=== PATIENT | female | born 1950 | race Caucasian/White ===

== ENCOUNTER → 2020-09-22 12:52 | Outpatient (BNVA) | payer MEDICARE, SELFPAY | PROVIDERS: Visit Provider Urology | DX: N20.0 Calculus of kidney (principal); N30.10 Interstitial cystitis (chronic) without hematuria | CPT/HCPCS: 81002; 99212 ==

== ENCOUNTER 2020-09-26 14:47 | Outpatient (REF) | payer MEDICARE, SELFPAY ==
[2020-10-02 13:02] LABS: URO-Calcium 24 Hr Urine 221 mg/day (<250.0); URO-Calcium Oxalat 24 Hr Urine 2.79 (<2.00); URO-Citric Acid 24 Hr Urine 608 mg/day (>320); URO-Creatinine 24 Hr Urine 858 mg/day (600-1800); URO-Magnesium 24 Hr Urine 84 mg/day (>60.0); URO-Oxalate 24 Hr Urine 18 mg/day (<45); URO-Phosphorus 24 Hr Urine 662 mg/day (<1100); URO-Potassium 24 Hr Urine 39 mEq/day (19-135); URO-Sodium 24 Hr Urine 79 mEq/day (<200); URO-Sodium Urate 24 Hr Urine 0.54 (<2.00); URO-Sulfate 24 Hr Urine 14 mmol/day (<30); URO-Total Volume 0.83 L/day (>2.00); URO-Uric Acid 24 Hr Urine 0.86 (<2.00); URO-Uric Acid 24 Hr Urine 89 mg/day (<700); URO-pH 24 Hr Urine 5.6 (5.5-7.0)
== END 2020-09-26 14:48 | disposition home or self-care (01) ==
LOC: HO.LNP 14:47
PROVIDERS: Visit Provider Urology
DX: N20.0 Calculus of kidney (principal)
CPT/HCPCS: 82340; 82507; 82570; 83735; 83945; 83986; 84105; 84133; 84300; 84392; 84560

== ENCOUNTER → 2020-10-27 14:15 | Outpatient (BNVA) | payer MEDICARE, SELFPAY | PROVIDERS: Visit Provider Urology | DX: Z13.89 Encounter for screening for other disorder (principal) | CPT/HCPCS: Q3014 ==

== ENCOUNTER 2021-04-26 14:14 | Outpatient (REF) | payer MEDICARE, SELFPAY ==
--- NOTE | ~2021-04-26 | US_ITS ---
EXAMINATION: US RETROPERITONEAL LIMITED (RENAL ONLY) CLINICAL INFORMATION: Calculus of kidney. COMPARISON: Renals only ultrasounds dated 02/17/2019 and 08/20/2018. TECHNIQUE: Real-time imaging of the kidneys. FINDINGS: RIGHT KIDNEY: 9.4 x 4.2 x 5.0 cm (SAG x AP x TRV). The kidney is normal in size, contour, and echogenicity. Renal cortical thickness is normal. No focal parenchymal lesions or hydronephrosis. There are a few echogenic stones in the lower pole measuring 0.4 x 0.2 x 0.3 cm and 0.5 x 0.3 cm. There is no caliectasis. In addition, there are multiple punctate echogenic calcifications. LEFT KIDNEY: 11.2 x 5.4 x 5.9 cm (SAG x AP x TRV). The kidney is normal in size, contour, and echogenicity. Renal cortical thickness is normal. No focal parenchymal lesions or hydronephrosis. There are echogenic stones in the midpole measuring 0.3 x 0.2 cm and lower pole measuring 0.2 x 0.1 cm. There are several multiple echogenic foci. There is mild pelvic fullness versus pelvic cysts. US/US renal BI IMPRESSION: Multiple bilateral echogenic renal calculi without caliectasis and hydronephrosis. In addition, there are multiple echogenic calcified foci in both kidneys. There is no hydronephrosis. However, there is mild pelvic fullness or peripelvic cyst left kidney.
== END 2021-04-26 14:15 | disposition home or self-care (01) ==
LOC: HO.US 14:14
PROVIDERS: Absent Provider Internal Medicine; PCP Internal Medicine; Visit Provider Urology
DX: N20.0 Calculus of kidney (principal)
CPT/HCPCS: 76775

== ENCOUNTER → 2021-05-05 08:46 | Outpatient (BNVA) | payer MEDICARE, SELFPAY | PROVIDERS: PCP Internal Medicine | DX: Z13.89 Encounter for screening for other disorder (principal) | CPT/HCPCS: Q3014 ==

== ENCOUNTER 2021-10-09 09:55 | Outpatient (REF) | payer MEDICARE, SELFPAY ==
--- NOTE | ~2021-10-09 | US_ITS ---
EXAMINATION: US RETROPERITONEAL LIMITED (RENAL ONLY) CLINICAL INFORMATION: Calculus of kidney. COMPARISON: US retroperitoneal limited (renal only) 04/26/2021 and 02/17/2019. TECHNIQUE: Real-time imaging of the kidneys. FINDINGS: RIGHT KIDNEY: 9.9 x 6.1 x 5.3 cm (SAG x AP x TRV). The kidney is normal in size, contour, and echogenicity. Renal cortical thickness is normal. No hydronephrosis. There are multiple peripelvic cysts, the largest measuring 2.2 x 1.3 x 1.3 cm. There are several echogenic nonobstructive stones. 1. Lower pole stone measures 0.3 x 0.4 x 0.5 cm. 2. Lower pole stone measures 0.3 x 0.5 x 0.6 cm. 3. Mid pole stone measuring 0.3 x 0.4 x 0.3 cm. 4. Lower pole stone measures 0.5 x 0.3 x 0.3 cm. LEFT KIDNEY: 12.0 x 4.9 x 5.4 cm (SAG x AP x TRV). The kidney is normal in size, contour, and echogenicity. Renal cortical thickness is normal. No hydronephrosis. There are multiple peripelvic cysts, the largest measures 2 x 3 x 3 cm. There are several echogenic stones in the mid pole measuring 0.6 x 0.4 x 0.3 cm. There are multiple echogenic calcifications seen throughout both kidneys, right greater than left. US/US renal BI IMPRESSION: Multiple bilateral peripelvic cysts. There are several echogenic stones in the right kidney and a solitary echogenic stone in the mid pole left kidney without caliectasis or hydronephrosis. They are stable to previous ultrasound abdomen exam 04/26/2021.
== END 2021-10-09 09:56 | disposition home or self-care (01) ==
LOC: HO.US 09:55
PROVIDERS: Visit Provider Urology
DX: N20.0 Calculus of kidney (principal)
CPT/HCPCS: 76775

== ENCOUNTER 2021-11-03 10:48 | Outpatient (REF) | payer MEDICARE, SELFPAY | END 2021-11-03 10:49 | disposition home or self-care (01) | LOC: HO.LAB 10:48 | DX: N30.10 Interstitial cystitis (chronic) without hematuria (principal); N20.0 Calculus of kidney; N39.0 Urinary tract infection, site not specified | CPT/HCPCS: 99212 ==

== ENCOUNTER 2022-05-02 13:15 | Outpatient (REF) | payer MEDICARE, SELFPAY ==
--- NOTE | ~2022-05-02 | US_ITS ---
EXAMINATION: US RETROPERITONEAL LIMITED (RENAL ONLY) CLINICAL INFORMATION: Calculus of kidney. COMPARISON: Ultrasound renal 10/09/2021 TECHNIQUE: Real-time imaging of the kidneys. FINDINGS: RIGHT KIDNEY: 9.3 x 3.6 x 5.5 cm (SAG x AP x TRV). The kidney is normal in size, contour, and echogenicity. Renal cortical thickness is normal. No renal hydronephrosis. Benign-appearing peripelvic renal cysts measuring up to 2.3 cm, no follow-up imaging recommended. Multiple nonobstructing renal stones which appears slightly decreased in size from prior measuring up to 3 mm in the lower pole, previously 5 mm. LEFT KIDNEY: 10.9 x 5.7 x 6.3 cm (SAG x AP x TRV). The kidney is normal in size, contour, and echogenicity. Renal cortical thickness is normal. No renal hydronephrosis. Benign-appearing peripelvic renal cysts measuring up to 3.2 cm, no imaging follow-up recommended. 3 mm nonobstructing midpole renal stone decreased from prior previously 6 mm. A 5 mm left upper pole renal stone was not and a 2 mm lower pole renal stone were not previously measured possibly new. US/US renal BI IMPRESSION: A 5 mm left upper pole renal stone and a 2 mm lower pole renal stone were not previously measured may be new from prior. Few other nonobstructing bilateral renal stones are slightly decreased in size measuring up to 3 mm bilaterally.
== END 2022-05-02 13:16 | disposition home or self-care (01) ==
LOC: HO.US 13:15
PROVIDERS: PCP Internal Medicine
DX: N20.0 Calculus of kidney (principal)
CPT/HCPCS: 76775

== ENCOUNTER → 2022-07-03 10:36 | Outpatient (BNVA) | payer MEDICARE, SELFPAY | PROVIDERS: PCP Internal Medicine; Visit Provider Nurse Practitioner Family | DX: N30.10 Interstitial cystitis (chronic) without hematuria (principal); N20.0 Calculus of kidney | CPT/HCPCS: 99212 ==

== ENCOUNTER 2023-01-10 10:21 | Outpatient (AMB) | payer MEDICARE, SELFPAY ==
--- NOTE | 2023-01-10 03:20 | A.OFFVIS_ITS ---
Intake Intake Visit Reasons: 6m follow up US (?) Intake Note: Patient presents today for a 6mo follow-up with US Results: Meds- Vitamin B6 & Estradiol Allergies to Antibiotic- No Known Allergies Blood Thinner- None PVR- 0ml Hub Borer Required: No Accompanied by: Self / Same As Patient Allergies No Known Allergies Allergy (Verified 01/10/23 10:26) HPI HPI Comments History of Present Illness Details Anjelica is a 72-year-old female who presents today to the office for a 6- month follow up. 01/10/2023? The patient was last seen by LISBET Mabry on 07/03/2022 for follow up on nephrolithiasis and interstitial cystitis and advised to follow up in 6 months. She had seen followed Dr. Oropeza for many years. The patient is prescribed vitamin B6 50 mg. She has seen snow shoveler in the past for excess of amount of calcium in the urine. She states that she is consuming adequate amount of fluids. Recent urinary tract infections treated with Bactrim DS 14 day course. She reports occasional bladder flare ups. She states that many foods aggravate her interstitial symptoms. She tried to avoid spices. She states that she has passed 2-3 stones in the urine a couple of months ago. she states her endocrinologis sent her for blood work and She is scheduled for bone density scan in 2 weeks. She has had renal US done on 05/02/2022. I discussed the recent CAT of the abdomen/pelvis without IV contrast from 12/11/2022 which was done at [facility]. I have reviewed the CAT scan which revealed multiple stones bilaterally approximately 8 kidney stones in the right and 10 kidney stones in the left kidney. They are small measuring up to 4.5 mm. Large parapelvic cyst in the left kidney. 01/10/23--Evaluation today UA---leukocytes: negative; blood: 10 Raheem; bladder scan PVR: 0. Plan: Patient had blood work at endocrionology office will have lab fax the results. 24-hour urine collection was ordered. Continue vitamin B6 50 mg daily. Tele-health video visit in 2-3 months. [facility] Medical History Bilateral nephrolithiasis Bladder pain H/O simple renal cyst Hypercalciuria Hyperthyroidism Interstitial cystitis Microscopic hematuria Nutcracker phenomenon of renal vein UTI (urinary tract infection) Surgical History History of cystoscopy History of hernia repair History of hysterectomy Review of Systems Const All systems reviewed & are unremarkable except as noted in HPI and below Reports no additional complaints Eyes Reports no additional complaints ENT Reports no additional complaints Card Reports no additional complaints Resp Reports no additional complaints Reports as per HPI Musc Reports no additional complaints Neuro Reports no additional complaints Psych Reports as per HPI Endo Details: Patient reports following with snow shoveler for hypothyrodism Jae/Lymph Reports no additional complaints Aller/Immun Reports no additional complaints Physical Exam Const General: cooperative, healthy appearing and no acute distress Orientation/consciousness: patient oriented x3 HEENT Head: Yes normal to inspection, Yes normocephalic and Yes atraumatic Eyes Conjunctivae: conjunctivae normal Neck Neck: Yes normal visual inspection and Yes trachea midline Chest Chest palpation & inspection: normal inspection of the chest Resp Effort & Inspection: normal respiratory effort Cardio Rate: regular rate GI Inspection: Yes normal to inspection Neuro General: patient oriented x3 Psych Appearance: grossly normal Office Procedures Post Void Residual Post Residual Void Post Void Residual (PVR): 0 [id number] Void Residual by ultrasound Results AMB Urinalysis, Automated UA Leukoctes 0 Luiza/uL Last Edit by LORIE Wise on 01/10/23 10:38 UA Nitrite Negative Last Edit by LORIE Wise on 01/10/23 10:38 UA Urobilinogen 0.2 mg/dL Last Edit by LORIE Wise on 01/10/23 10:3 8 UA Protein 0 mg/dL Last Edit by LORIE Wise on 01/10/23 10:38 UA pH 6.5 Last Edit by LORIE Wise on 01/10/23 10:38 UA Blood 10 Raheem/uL Last Edit by Arnulfo MomoLORIE mccormick on 01/10/23 10:38 UA Specific [place] 1.015 Last Edit by Arnulfo LimaEVELINA medinaRoxane on 01/10/23 10: 38 UA Ketone Negative Last Edit by Arnulfo Barr A on 01/10/23 10:38 UA Bilirubin 0 mg/dL Last Edit by Arnulfo QuintanillaLORIE mccormick on 01/10/23 10:38 UA Glucose 0 mg/dL Last Edit by Arnulfo MomoLORIE mccormick on 01/10/23 10:38 Results Reviewed Results Reviewed: Laboratory Last Values Urine pH (Auto) 6.5 01/10/23 10:37 Specific [place] (Auto) 1.015 01/10/23 10:37 Urine Protein (Auto) 0 mg/dL 01/10/23 10:37 Glucose (UA)(Auto) 0 mg/dL 01/10/23 10:37 Urine Ketones (Auto) Negative 01/10/23 10:37 Urine Blood (Auto) 10 Raheem/uL 01/10/23 10:37 Urine Nitrite (Auto) Negative 01/10/23 10:37 Urine Bilirubin (Auto) 0 mg/dL 01/10/23 10:37 Urine Urobilinogen (Auto) 0.2 mg/dL 01/10/23 10:37 Leukocyte Esterase (Auto) 0 Luiza/uL 01/10/23 10:37 Date of Service: 05/02/22 US RETROPERITONEAL LIMITED (RENAL ONLY) FINDINGS: RIGHT KIDNEY: 9.3 x 3.6 x 5.5 cm (SAG x AP x TRV). The kidney is normal in size, contour, and echogenicity. Renal cortical thickness is normal. No renal hydronephrosis. Benign-appearing peripelvic renal cysts measuring up to 2.3 cm, no follow-up imaging recommended. Multiple nonobstructing renal stones which appears slightly decreased in size from prior measuring up to 3 mm in the lower pole, previously 5 mm. LEFT KIDNEY: 10.9 x 5.7 x 6.3 cm (SAG x AP x TRV). The kidney is normal in size, contour, and echogenicity. Renal cortical thickness is normal. No renal hydronephrosis. Benign-appearing peripelvic renal cysts measuring up to 3.2 cm, no imaging follow-up recommended. 3 mm nonobstructing midpole renal stone decreased from prior previously 6 mm. A 5 mm left upper pole renal stone was not and a 2 mm lower pole renal stone were not previously measured possibly new. IMPRESSION: ? A 5 mm left upper pole renal stone and a 2 mm lower pole renal stone were not previously measured may be new from prior. Few other nonobstructing bilateral renal stones are slightly decreased in size measuring up to 3 mm bilaterally. Assessment & Plan Assessment & Plan (1) Interstitial cystitis: Code(s): N30.10 - Interstitial cystitis (chronic) without hematuria (2) Nephrolithiasis: Code(s): N20.0 - Calculus of kidney (3) Hypercalciuria: Code(s): R82.994 - Hypercalciuria Plan 24-hour urine collection was ordered. Contineu vitamin B6 50 mg daily. Tele-health video visit in 2-3 months. Orders: Orders AMB Urinalysis Automated Today Z13.9 - Encounter for screening, unspecified AMB Post Void Residual by ultrasound Today N39.8 - Other specified disorders of urinary system Patient Instructions: The patient had an opportunity to ask questions regarding treatment plan. All questions were answered. Imaging, Laboratory studies and physical exam results were discussed and reviewed in detail. No major barriers to understanding were identified. The patient expressed understanding and agreement with the above treatment plan.? ? ? The patient is aware they should contact our office by phone for worsening of their current condition or the appearance of new symptoms. Compliance is encouraged with any medications and followup testing that is ordered.? ? ? It is a privilege to be allowed the opportunity to participate in the urologic care of your patient. If you have any questions or concerns regarding treatment for the above conditions please do not hesitate to contact me. The office telephone contact is [phone].? ? ? This note is constructed in part using voice recognition software. While every effort has been made to ensure accuracy ship propeller finisher errors may have been included.? ? ? Yours sincerely,? ? ? Nata Gomez MD? Coding Level of Care Code Est Pt Level 4 (90385) Diagnoses Interstitial cystitis N30.10 Nephrolithiasis N20.0 Hypercalciuria R82.994 CPT Codes Post Residual Void - PVR CPT Code: 58267-[id number] Void Residual by ultrasound ([id number]) Time Spent (min) 32
== END 2023-01-10 11:30 | disposition home or self-care (01) ==
PROVIDERS: PCP Internal Medicine; Visit Provider Urology
DX: N30.10 Interstitial cystitis (chronic) without hematuria (principal); N20.0 Calculus of kidney; R82.994 Hypercalciuria; Z13.9 Encounter for screening, unspecified
CPT/HCPCS: 99214

== ENCOUNTER → 2023-01-10 10:21 | Outpatient (BNVA) | payer MEDICARE, SELFPAY | PROVIDERS: Visit Provider Urology | DX: N30.10 Interstitial cystitis (chronic) without hematuria (principal); N20.0 Calculus of kidney; R82.994 Hypercalciuria | CPT/HCPCS: 51798; 81003; 99212 ==

== ENCOUNTER 2023-04-10 09:58 | Outpatient (AMB) | payer MEDICARE, SELFPAY ==
--- NOTE | 2023-04-10 10:00 | A.OFFVIS_ITS ---
Intake Intake Visit Reasons: 3m/litholink Intake Note: Patient presents today for Litholink Results: Meds- Vitamin B6 Allergies to Antibiotic- No Known Allergies Blood Thinner- None Ice Cream Server Required: No Accompanied by: Self / Same As Patient Allergies No Known Allergies Allergy (Verified 04/10/23 10:02) HPI HPI Comments History of Present Illness Details Anjelica is a 72-year-old female who presents today via Tele-health for a follow-up. 04/10/2023? She is followed today for nephrolithiasis and IC. She is scheduled today to review 24-hour test results. She reports occasional bladder flare ups. She states that many foods aggravate her interstitial symptoms. She tried to avoid spices. She states that she has passed 2-3 stones in the urine a couple of months ago. I reviewed the CAT scan of the abdomen/pelvis without IV contrast results from 12/10/2022 revealed multiple small bilateral kidney stones approximately 8 stones in the right and 10 stones in the left kidney all less than 4.5 mm. I have reviewed the 24-hour urine collection results revealed urine volume was 1.94, urine calcium was 162, urine oxalate was 18, and urine sodium was 100. The patient states that she is concerned about her diet, and notes that she has been restricting her diet. She enjoys nuts but was instructed by another Urologist not to eat nuts. I discussed with the patient that she may add nuts in her diet, about a handful (10) nuts twice a week. Review of chart: Testing: Renal US done on 05/02/2022. --bilateral renal stones are slightly decreased in size measuring up to 3 mm bilaterally. CAT of the abdomen/pelvis without IV contrast from 12/11/2022 which was done at [facility]. --Multiple stones bilaterally approximat samuel 8 kidney stones in the right and 10 kidney stones in the left kidney. They are small measuring up to 4.5 mm. Large parapelvic cyst in the left kidney. 04/10/2023: Plan: Cont Vit B6 50 mg daily CAT scan stone protocol in 12/2023. Follow-up in 12/2023. [facility] Medical History Bilateral nephrolithiasis Bladder pain H/O simple renal cyst Hypercalciuria Hyperthyroidism Interstitial cystitis Microscopic hematuria Nutcracker phenomenon of renal vein UTI (urinary tract infection) Surgical History History of cystoscopy History of hernia repair History of hysterectomy Review of Systems Const All systems reviewed & are unremarkable except as noted in HPI and below Reports no additional complaints Eyes Reports no additional complaints ENT Reports no additional complaints Card Reports no additional complaints Resp Reports no additional complaints Reports as per HPI Musc Reports no additional complaints Neuro Reports no additional complaints Psych Reports as per HPI Endo Details: 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 COMPARISON: Ultrasound renal 10/09/2021 TECHNIQUE: Real-time imaging of the kidneys. FINDINGS: RIGHT KIDNEY: 9.3 x 3.6 x 5.5 cm (SAG x AP x TRV). The kidney is normal in size, contour, and echogenicity. Renal cortical thickness is normal. No renal hydronephrosis. Benign-appearing peripelvic renal cysts measuring up to 2.3 cm, no follow-up imaging recommended. Multiple nonobstructing renal stones which appears slightly decreased in size from prior measuring up to 3 mm in the lower pole, previously 5 mm. LEFT KIDNEY: 10.9 x 5.7 x 6.3 cm (SAG x AP x TRV). The kidney is normal in size, contour, and echogenicity. Renal cortical thickness is normal. No renal hydronephrosis. Benign-appearing peripelvic renal cysts measuring up to 3.2 cm, no imaging follow-up recommended. 3 mm nonobstructing midpole renal stone decreased from prior previously 6 mm. A 5 mm left upper pole renal stone was not and a 2 mm lower pole renal stone were not previously measured possibly new. IMPRESSION: A 5 mm left upper pole renal stone and a 2 mm lower pole renal stone were not previously measured may be new from prior. Few other nonobstructing bilateral renal stones are slightly decreased in size measuring up to 3 mm bilaterally. Assessment & Plan Assessment & Plan (1) Interstitial cystitis: Code(s): N30.10 - Interstitial cystitis (chronic) without hematuria (2) Nephrolithiasis: Code(s): N20.0 - Calculus of kidney (3) Hypercalciuria: Code(s): R82.994 - Hypercalciuria Plan Cont Vit B6 50 mg daily CAT scan stone protocol in 12/2023. Follow-up in 12/2023. Patient Instructions: The patient had an opportunity to ask questions regarding treatment plan. All questions were answered. Imaging, Laboratory studies and physical exam results were discussed and reviewed in detail. No major barriers to understanding were identified. The patient expressed understanding and agreement with the above treatment plan. The patient is aware they should contact our office by phone for worsening of their current condition or the appearance of new symptoms. Compliance is encouraged with any medications and followup testing that is ordered. It is a privilege to be allowed the opportunity to participate in the urologic care of your patient. If you have any questions or concerns regarding treatment for the above conditions please do not hesitate to contact me. The office telephone contact is [phone]. This note is constructed in part using voice recognition software. While every effort has been made to ensure accuracy immigration inspector errors may have been included. Yours sincerely, Nata Gomez MD Telehealth Telehealth Location of provider rendering services: practice address Location of patient: address on file Patient Identification confirmed using: Name, : Yes Telehealth method: voice only Patient verbally consented to treatment: Yes Patient verbally consented to billing insurance company: Yes Patient informed of any privacy concerns related to visit: Yes Minutes spent on Phone/Video with Pt.: 28 Coding Level of Care Code Tele Est Pt Level 4 (38111) Diagnoses Interstitial cystitis N30.10 Nephrolithiasis N20.0 Hypercalciuria R82.994
--- OUTSIDE RECORDS SUMMARY | 2023-04-10 10:00 | XMS_ITS | Continuity of Care Document ---
Author Name Unknown Organization [facility] Address [address] [place] [address]- Care Team Providers Care Roustabout Crew Pusher Name Role Phone Arvind Mcgrath MD Primary Care Physician Encounter 11/13/22 - 11/20/22 [facility] [address], [facility] [address] [place] [address]- Attending Physician: Pallavi Young CNM Admitting Physician: Pallavi Young CNM Referring Physician: Pallavi Young CNM Allergies, Adverse Reactions, Alerts Substance Reaction Severity Status Pain Reliever 1 Active 1makes pt sick Medications Benadryl Capsule 25 mg, By Mouth, 3 times a day, Maintenance, 04/01/14 13:51:27 Start Date: 04/01/14 Status: Ordered Calcium 600 +D oral tablet 1 tablet, By Mouth, 3 times a day, # 270 tablet, 0 Refills, Maintenance, 04/01/14 13:50:59, Tablet Start Date: 04/01/14 Status: Ordered Estrace Vaginal = 1 Gm, Vaginally, Daily at bedtime, 0 Refills, Maintenance, 04/01/14 13:51:18 Start Date: 04/01/14 Status: Ordered fluticasone 50 mcg/inh nasal spray 1 sprays, Nares, Both, 2 times a day, # 16 Gm, 0 Refills, Maintenance, 04/01/14 13:50:50, [place] Start Date: 04/01/14 Status: Ordered levothyroxine 0.088 mg oral tablet 1 tablet = 88 mcg, By Mouth, Daily, # 30 tablet, 0 Refills, Maintenance, 04/01/14 13:50:39, Tablet Start Date: 04/01/14 Status: Ordered loratadine 10 mg oral tablet 1 tablet = 10 mg, By Mouth, Daily, # 30 tablet, 0 Refills, Maintenance, 04/01/14 13:50:32, Tablet Start Date: 04/01/14 Status: Ordered Tylenol Extra Strength P.M. 1 tablet, By Mouth, Daily at bedtime, 0 Refills, Maintenance, 04/01/14 13:51:57 Start Date: 04/01/14 Status: Ordered Results Radiology Reports * Exam Date Time Procedure Performing Provider Status 11/13/22 2:22 PM US Breast Bilat Complete Screen Dorinda Mead; Ally (Verified) Notes: (US Breast Bilat Complete Screen) Reason For Exam: R92.2 DENSE RESULT: US Breast Bilat Complete Screen PROCEDURE: SCREENING ULTRASOUND INDICATION: Screening for breast cancer. Dense breast parenchyma COMPARISON: Bilateral breast ultrasound exam of 02/13/2021 TECHNIQUE: Ultrasound of each was performed. This study includes all four quadrants of each scannedbreast and the retroareolar and axillary regions. FINDINGS: No suspicious masses or other suspicious sonographic findings are seen to suggest malignancy. No adenopathy or other axillary abnormalities are seen. IMPRESSION: No sonographic evidence of malignancy. RECOMMENDATION: Annual mammographic screening BI-RADS: 1 (Negative) WSN: [id number] Ordering Physician: Pallavi Young Dictated By: Chris Moura Jr, MD Dictated Date/Time: 11/13/22 2:26 pm Reviewed By: Chris Moura Jr, MD Signed By: Chris Moura Jr, MD Signed Date/Time: 11/13/22 2:26 pm Transcribed By: RUDI Transcribed Date/Time: 11/13/22 2:25 pm Social History Social History Type Response Smoking Status Never smoker; Tobacc o user in household: No entered on: 04/01/14 Sex Patient Care team information Care Team Personnel Name: Vlad NOBLES, Josselyn Jaime Position: [facility] SN RN Member Role: Primary Care Nurse Name: Arvind Mcgrath MD Position: [facility] Physician - Primary Care Member Role: PCP Address: Address: [address] [place] [id number]- Care Team Related Persons Name: GAIL LOWERY Address: home [address] [place] [id number]
--- OUTSIDE RECORDS SUMMARY | 2023-04-10 10:00 | XMS_ITS | Continuity of Care Document ---
Author Name Unknown Organization [facility] Address [address] [facility], [facility] [address] [place] [address]- Care Team Providers Care Delinquency Counselor Name Role Phone Arvind Mcgrath MD Primary Care Physician [phone] Encounter 02/05/23 - 02/12/23 [facility] [address], [facility] [address] [place] [address]- Attending Physician: Arlette Pond MD Admitting Physician: Arlette Pond MD Referring Physician: Arlette Pond MD Allergies, Adverse Reactions, Alerts Substance Reaction Severity [...] 16 Gm, 0 Refills, Maintenance, 04/01/14 13:50:50, [place] Start Date: 04/01/14 Status: Ordered levothyroxine 0.088 [...] Exam Date Time Procedure Performing Provider Status 02/05/23 11:12 AM Dexa Bone Density (Axial) Karis Romero ; Auth (Verified) Notes: (Dexa Bone Density (Axial)) Reason For Exam: M81.0 AGE RELATED OSTEOPOROSIS RESULT: Dexa Bone Density (Axial) Name:SAMUEL LOWERY Age:72 years Sex:Female Ethnicity:White Date of :1950 Reason: Postmenopausal; M81.0 AGE RELATED OSTEOPOROSIS; Clinical Question(s): Other: Referring Provider:Arlette Justice MD Study:Dexa Bone Density (Axial) Bone Density: Region BMD T-Score Z-Score Classification AP Spine 0.873 -1.6 0.6 Osteopenia TOTAL HIP 0.635 -2.5 -1.0 Osteoporosis FEM NECK 0.642 -1.9 0.0 Osteopenia 10-year Fracture Risk: Fracture Risk Not Reported: FRAX not reported because: Some T-score for Spine Total or Hip Total or Femoral Neck at or below -2.5 RATE OF CHANGE(SPINE): BMD values have decreased 3.8% from baseline RATE OF CHANGE(TOTAL HIP): BMD values have decreased 12.9% from baseline RATE OF CHANGE(FEMORAL NECK): BMD values have increased 12.1% from previous BMD values have decreased 4.6% from baseline Impression: The patient has osteoporosis as determined by WHO criteria. WSN: [id number] Ordering Physician: Arlette Pond Dictated By: Chris Moura Jr, MD Dictated Date/Time: 02/08/23 8:05 am Reviewed By: Chris Moura Jr, MD Signed By: Chris Moura Jr, MD Signed Date/Time: 02/08/23 8:05 am Transcribed By: RUDI Transcribed Date/Time: 02/08/23 8:04 am Social History Social History Type Response Smoking Status Never smoker; Tobacc o user in household: No entered on: 04/01/14 Sex Patient Care team information Care Team Personnel Name: Vlad RN, Josselyn Jaime Position: [facility] SN RN Member Role: Primary Care Nurse Name: Arvind Mcgrath MD Position: [facility] Physician - Primary Care Member Role: PCP Address: Address: [address] [place] [address]- Name: Arlette Pond MD Position: [facility] Physician - Endocrinology Med Service: Endocrinology Member Role: Referring Physician Address: Address: [address] [place] [address] [place] [address]- Care Team Related Persons Name: GAIL LOWERY Address: [address] [address]
--- OUTSIDE RECORDS SUMMARY | 2023-04-10 10:01 | XMS_ITS | Patient Health Record ---
Author Name Unknown Organization [facility] Address [address] [address] Care Team Providers Care Tumbling Instructor Name Role Phone Arvind Mcgrath Primary Care Provider KERRY Marshall Unavailable [phone] ALLERGIES Allergen (clinical drug ingredient) Drug/Non Drug Allergy documented on EMR Reaction Allergy Type Onset Date Status pain killers (uncoded) nausea Allergy Active Seasonal Allergies (uncoded) Unknown Allergy Active REASON FOR REFERRAL No Information MEDICATIONS Medication SIG (Take, Route, Frequency, Duration) Notes Start Date End Date Status Synthroid 88 MCG 1 tablet in the morning on an empty stomach Orally Once a day Active Vitamin D3 25 MCG (1000 UT) 1 capsule Orally Once a day Active Estrace 0.1 MG/GM as directed Vaginal 3 times a week Active Flonase Allergy Relief 50 MCG/ACT 2 sprays in each nostril Nasally Once a day PRN Active Loratadine 10 MG 1 tablet Orally Once a day Active PreserVision AREDS - as directed Orally Active Benadryl Allergy 25 MG 1 tablet at bedti me as needed Orally Once a day Active SOCIAL HISTORY Sex Assigned At : Social History Observation Description Sex Assigned At Unknown VITAL SIGNS Heart Rate 86 /min 10/30/2022 Temperature 97.8 degrees Fahrenheit 10/30/2022 Respiratory Rate 14 /min 10/30/2022 Blood pressure diastolic 70 mm Hg 10/30/2022 Height 5ft 3in in 10/30/2022 Blood pressure systolic 105 mm Hg 10/30/2022 Weight 130.1 lbs 10/30/2022 BMI 23.04 kg/m2 10/30/2022 Encounters Encounter Location Date Provider Diagnosis [facility] [address] [address] 10/30/2022 KERRY NIX Arthritis of joint o f lesser toe of left foot M19.072 ; Arthritis of joint of lesser toe of right foot M19.071 and Paresthesia of both feet R20.2 ASSESSMENTS Encounter Date Diagnosis Assessment Notes Treatment Notes Treatment Clinical Notes 10/30/2022 Arthritis of joint of lesser toe of right foot (ICD-10 - M19.071) 10/30/2022 Arthritis of joint of lesser toe of left foot (ICD-10 - M19.072) Patient examined and evaluated. I reviewed her past medical history in detail with her. I also reviewed the last specialists office notes and her recent PCP office note. Three weightbearing radiographs of the right and left foot were taken in the office today and reviewed with the patient. She was given printed copies of these images. She does have significant degenerative changes to the right 2nd, 3rd, and 4th DIPJs and the left 3rd and 4th DIPJs. This is likely osteoarthritis, but can not rule out seronegative arthropathy such as psoriatic arthritis. I discussed with her that the inserts and splinting are not necessary. We discussed starting 1% Voltaren gel twice daily for the next few weeks to see if this helps. I advised wearing good supportive shoe gear. We also discussed Rx compounding topicals as well. She will proceed with the Voltaren gel for now and let me know how she does with this. I will see her back as needed. I encouraged her to call in the meantime with any questions or concerns. 10/30/2022 Paresthesia of both feet (ICD-10 - R20.2) Patient with cold sensation to both feet with strong arterial perfusion. We discussed that the cold sensation may be due to the small sensory nerves. The nerves can be affected by any minute imbalance and create hypersensitivity. I do recommend B12, magnesium, and phos testing by PCP team in the presence of nephrolithiasis and hypercalciuria. PLAN OF TREATMENT No Information Insurance Providers Payer Name Payer Address Payer Phone Subscriber Number Group Number Insured Name Patient Relationship to Insured Coverage Start Date Coverage End Date [facility] [address] [place] [address] [facility] [place] [phone] [id number] Anjelica Carroll Self - patient is the insured MEDICAL (GENERAL) HISTORY Medical History History ICD Code hypothyroidism fibroids h/o BCC allergic rhinitis due to pollen heart murmur recurrent nephrolithiasis vitamin D deficiency osteoporosis- no fracture interstitial cystitis hypercalciuria neck pain strain of lumbar region 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
== END 2023-04-10 11:31 | disposition home or self-care (01) ==
LOC: HO.HUSH 09:58
PROVIDERS: PCP Internal Medicine; Visit Provider Urology
DX: N30.10 Interstitial cystitis (chronic) without hematuria (principal); N20.0 Calculus of kidney; R82.994 Hypercalciuria
CPT/HCPCS: 99443

== ENCOUNTER → 2023-04-10 09:58 | Outpatient (BNVA) | payer MEDICARE, SELFPAY | PROVIDERS: PCP Internal Medicine; Visit Provider Urology ==

== ENCOUNTER 2024-05-18 12:17 | Outpatient (REF) | payer MEDICARE, SELFPAY | END 2024-05-18 12:18 | disposition home or self-care (01) | LOC: HO.US 12:17 | PROVIDERS: PCP Internal Medicine; Visit Provider Urology | DX: N30.10 Interstitial cystitis (chronic) without hematuria (principal); N20.0 Calculus of kidney | CPT/HCPCS: 76770 ==

== ENCOUNTER → 2024-05-18 12:20 | Outpatient (BNV) | payer MEDICARE, SELFPAY | PROVIDERS: PCP Internal Medicine; Visit Provider Radiology Diagnostic Radiology | DX: N28.1 Cyst of kidney, acquired (principal); N39.0 Urinary tract infection, site not specified | CPT/HCPCS: 76770 ==

== ENCOUNTER → 2024-07-02 14:07 | Outpatient (BNVA) | payer MEDICARE, SELFPAY | PROVIDERS: PCP Internal Medicine; Visit Provider Urology ==

== ENCOUNTER 2024-12-14 16:26 | Outpatient (AMB) | payer MEDICARE, SELFPAY ==
--- NOTE | 2024-12-14 16:27 | A.OFFVIS_ITS ---
Intake Visit Reasons: UTI/kidney stone f/u Intake Note: Patient is present for UTI/kidney stone follow up Urology Med: Estradiol, Vitamin B6, Tamsulosin Antibiotic Allergy:None Blood Thinner: None Allergies No Known Allergies Allergy (Verified 12/14/24 16:28) Medication List - Last Reconciled 12/14/24 by Nata Gomez MD estradiol 0.01%(0.1mg/gram) grams vaginal levothyroxine 88 mcg PO DAILY loratadine 10 mg PO DAILY PRN pyridoxine (vitamin B6) 50 mg PO DAILY tamsulosin (Flomax) 0.4 mg PO BEDTIME PRN HPI Comments Details: 12/14/24--Anjelica is followed for kidney stones and interstitial cystitis she presents as telehealth follow-up. She states she was recently hospitalized at [facility] for UTI and required a procedure for obstructing ureteral stone. History of Present Illness - The patient is a 74-year-old female presenting with follow-up for kidney stones and interstitial cystitis. - Kidney stones have been a recurring issue - A recent episode involved a stone in the right distal ureter causing severe pain, requiring hospital intervention at [facility]. - The stone was removed, and a stent was placed briefly but removed the next day. - The patient experienced severe pain and was hospitalized for several days, with subsequent complications including yeast infections and Clostridioides difficile infection, likely due to antibiotic use. - Interstitial cystitis is managed with dietary modifications, avoiding acidic foods, and considering probiotics. Plan - Continue vitamin B6 50 mg daily for kidney stone management. - Referral to nephrology for further evaluation of recurrent kidney stones and potential additional recommendations. - Dietary management includes avoiding acidic foods for interstitial cystitis management. - The patient states she has an appointment with infectious disease for Clost ridioides difficile infection management. - Our office we will obtain ultrasound results from 12/03/2024, continue to monitor kidney follow-up renal ultrasound in 9 months 07/02/2024--telehealth video follow-up. She is followed today for nephrolithiasis and IC. She reports occasional bladder flare ups. She states that many foods aggravate her interstitial symptoms. She tried to avoid spices. She states that she has passed 2-3 stones in the urine a couple of months ago. I reviewed recent renal ultrasound bilateral kidney stones 2-3 small kidney stones less than 3 mm in each kidney. I want her to continue vitamin B6 50 mg daily discussed use of tamsulosin when she is passing a kidney stone may be helpful. 04/10/2023?Anjelica is a 72-year-old female who presents today via Tele-health for a follow-up. She is followed today for nephrolithiasis and IC. She is scheduled today to review 24-hour test results. She reports occasional bladder flare ups. She states that many foods aggravate her interstitial symptoms. She tried to avoid spices. She states that she has passed 2-3 stones in the urine a couple of months ago. I reviewed the CAT scan of the abdomen/pelvis without IV contrast results from 12/10/2022 revealed multiple small bilateral kidney stones approximately 8 stones in the right and 10 stones in the left kidney all less than 4.5 mm. I have reviewed the 24-hour urine collection results revealed urine volume was 1.94, urine calcium was 162, urine oxalate was 18, and urine sodium was 100. The patient states that she is concerned about her diet, and notes that she has been restricting her diet. She enjoys nuts but was instructed by another Urologist not to eat nuts. I discussed with the patient that she may add nuts in her diet, about a handful (10) nuts twice a week. Imagiing: Renal US - 05/02/2022. --bilateral renal stones are slightly decreased in size measuring up to 3 mm bilaterally. CAT of the abdomen/pelvis without IV contrast -12/11/2022 [facility]. --Multiple stones bilaterally approximately 8 kidney stones in the right and 10 kidney stones in the left kidney. They are small measuring up to 4.5 mm. Large parapelvic cyst in the left kidney. [facility] Medical History Nutcracker phenomenon of renal vein UTI (urinary tract infection) H/O simple renal cyst Microscopic hematuria Bladder pain Hyperthyroidism Interstitial cystitis Hypercalciuria Bilateral nephrolithiasis Surgical History History of cystoscopy History of hernia repair History of hysterectomy Review of Systems Const All systems reviewed & are unremarkable except as noted in HPI and below Reports no additional complaints Eyes Reports no additional complaints ENT Reports no additional complaints Card Reports no additional complaints Resp Reports no additional complaints GI Reports no additional complaints Reports as per HPI Musc Reports no additional complaints Skin/Breast Reports system reviewed and no additional complaints, except as documented Neuro Reports no additional complaints Psych Reports no additional complaints Endo Reports no additional complaints Jae/Lymph Reports no additional complaints Aller/Immun Reports no additional complaints Telehealth Telehealth Telehealth Platform: [employer] Location of provider rendering services: practice address Location of patient: address on file Patient Identification confirmed using: Name, : Yes Telehealth method: video Patient verbally consented to treatment: Yes Patient verbally consented to billing insurance company: Yes Patient informed of any privacy concerns related to visit: Yes Results Reviewed Results Reviewed: Date of Service: 05/18/24 US RETROPERITONEAL COMPLETE (RENAL) CLINICAL INFORMATION: UTI.. COMPARISON: None available. TECHNIQUE: Real-time imaging of the kidneys and bladder. FINDINGS: RIGHT KIDNEY: 9.9 x 5.4 x 5.0 cm (SAG x AP x TRV). The kidney is normal in size, contour, and echogenicity. Renal cortical thickness is normal. There is anechoic peripelvic cyst biggest measuring 1.3 x 1.1 x 1.2 cm. There are several echogenic stones. The biggest echogenic stone upper pole measuring 0.3 x 0.2 cm, mid pole stone measuring 0.3 x 0.2 cm and 0.3 x 0.2 cm. A small twinkle artifact seen lower pole as well. No caliectasis or hydronephrosis seen. LEFT KIDNEY: 11.4 x 5.0 x 4.6 cm (SAG x AP x TRV). The kidney is normal in size, contour, and echogenicity. Renal cortical thickness is normal. Is a peripelvic cyst measuring 2.8 x 2.4 x 2.7 cm. An echogenic stone in lower pole measuring 0.2 x 0.2 cm, 0.2 x 0.2 cm and mid pole stone measures 0.2 x 0.1 cm. Small twinkle artifacts is seen upper and mid pole. Likely nonspecific calcification. There is no caliectasis or hydronephrosis. BLADDER: Well distended and normal. Bilateral ureteral jets are demonstrated. There are multiple echogenic stones or calcification seen in the left ureter. Prevoid bladder volume is 300.1 mL. Postvoid bladder volume is 48.6 mL. IMPRESSION: Bilateral renal cyst and bilateral nonobstructive radiopaque renal calculi. No caliectasis or hydronephrosis seen. Suspect small echogenic stones in the left distal ureter without any hydroureter or obstruction. There is normal bilateral ureteral jets and a small post void residual bladder volume. Date of Service: 05/02/22 EXAMINATION: US RETROPERITONEAL LIMITED (RENAL ONLY) CLINICAL INFORMATION: Calculus of kidney. COMPARISON: Ultrasound renal 10/09/2021 TECHNIQUE: Real-time imaging of the kidneys. FINDINGS: RIGHT KIDNEY: 9.3 x 3.6 x 5.5 cm (SAG x AP x TRV). The kidney is normal in size, contour, and echogenicity. Renal cortical thickness is normal. No renal hydronephrosis. Benign-appearing peripelvic renal cysts measuring up to 2.3 cm, no follow-up imaging recommended. Multiple nonobstructing renal stones which appears slightly decreased in size from prior measuring up to 3 mm in the lower pole, previously 5 mm. LEFT KIDNEY: 10.9 x 5.7 x 6.3 cm (SAG x AP x TRV). The kidney is normal in size, contour, and echogenicity. Renal cortical thickness is normal. No renal hydronephrosis. Benign-appearing peripelvic renal cysts measuring up to 3.2 cm, no imaging follow-up recommended. 3 mm nonobstructing midpole renal stone decreased from prior previously 6 mm. A 5 mm left upper pole renal stone was not and a 2 mm lower pole renal stone were not previously measured possibly new. IMPRESSION: A 5 mm left upper pole renal stone and a 2 mm lower pole renal stone were not previously measured may be new from prior. Few other nonobstructing bilateral renal stones are slightly decreased in size measuring up to 3 mm bilaterally. Assessment & Plan Assessment & Plan (1) Bilateral nephrolithiasis: Code(s): N20.0 - Calculus of kidney Category: Medical (2) Nephrolithiasis: Code(s): N20.0 - Calculus of kidney Category: Medical Plan Plan - Continue vitamin B6 50 mg daily for kidney stone management. - Referral to nephrology for further evaluation of recurrent kidney stones and potential additional recommendations. - Dietary management includes avoiding acidic foods for interstitial cystitis management. - The patient states she has an appointment with infectious disease for Clostridioides difficile infection management. - Our office we will obtain ultrasound results from 12/03/2024, continue to monitor kidney follow-up renal ultrasound in 9 months Orders: Orders US renal BI 8 Months N20.0 - Calculus of kidney Referrals Nephrology Referral N20.0 - Calculus of kidney Patient Instructions: The patient had an opportunity to ask questions regarding treatment plan. The patient expressed understanding and agreement with the above treatment plan. The patient is aware they should contact our office by phone for worsening of their current condition or the appearance of new symptoms. Compliance is encouraged with any medications and followup testing that is ordered. It is a privilege to be allowed the opportunity to participate in the urologic care of your patient. If you have any questions or concerns regarding treatment for the above conditions please do not hesitate to contact me. The office telephone contact is [phone]. This note is constructed in part using voice recognition software. While every effort has been made to ensure accuracy dehairer errors may have been included. Yours sincerely, Nata Gomez MD Scribe Plan - Not visible on output: Patient was informed and verbally consented to the use of an ambient scribe for clinic note documentation during this visit. Coding Level of Care Code Tele Est Pt Level 4 (10665) Diagnoses Bilateral nephrolithiasis N20.0 Nephrolithiasis N20.0
--- OUTSIDE RECORDS SUMMARY | 2024-12-14 16:27 | XMS_ITS | Patient Health Record ---
Author Organization [facility] Address [address] [facility] [address] [place] [address] Care Team Providers Care Back Roll Lathe Operator Name Role Phone Arvind Mcgrath Primary Care Provider Unavailabl e Allergies Allergen (clinical drug ingredient) Drug/Non Drug Allergy documented on EMR Reaction Allergy Type Onset Date Status pain killers (uncoded) nausea Allergy Active Seasonal Allergies (uncoded) Unknown Allergy Active Reason For Referral No Information Medications Medication SIG (Take, Route, Frequency, Duration) Notes [...] as needed Orally Once a day Active Plan Of Treatment No Information Insurance Providers Payer Name Payer Address Payer Phone Subscriber Number Group Number Insured Name Patient Relationship to Insured Coverage Start Date Coverage End Date [facility] [address] [facility] [address] [place] [phone] [id number] Anjelica Self - patient is the insured Medical (General) History Medical History History ICD Code hypothyroidism fibroids h/o BCC allergic rhinitis due to pollen heart murmur recurrent nephrolithiasis vitamin D deficiency osteoporosis- no fracture interstitial cystitis hypercalciuria neck pain strain of lumbar region 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
--- OUTSIDE RECORDS SUMMARY | 2024-12-14 16:27 | XMS_ITS | Continuity of Care Document ---
Author Organization [facility] [address] [facility] [address] [place] [address] Phone [phone] Care Team Providers Care Manager Transition Name Role Phone Arvind Mcgrath M.D. Care Team Information Head Knitting Machine Fixer + [phone] Problems Active Problems Provider Date Gastroesophageal reflux disease Arlette Justice M.D. Onset: 12/24/2022 Dysphagia Arlette Hartman M.D. Ons et: 12/24/2022 Hypothyroidism Arlette Hartman M.D. Ons et: 12/24/2022 Allergic rhinitis Arlette Hartman M.D. O nset: 12/24/2022 Vitamin D deficiency Vern Livingston Onset: 12/24/2022 Osteoporosis Arlette Hartman M.D. Ons et: 12/24/2022 Recurrent kidney stone Yara Livingtson Onset: 12/24/2022 Chronic interstitial cystitis Arlette garcia M.D. 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 12/24/2022 Estradiol0.1mg/GM Cream Apply twice weekly Pallavi Young Vitamin B650mg Tablets Take 1 Tablet By Mouth Every Day Unknown Fluticasone [id number]/Act Suspension arenn Arvind Mcgrath M.D. Vitamin O832rxo (1999 Ut) Capsules 1 by mouth every day Arlette Hartman M.D. Levothyroxine [id number] Tablets Take 1 tablet daily except take 1 1/2 tabs on Sundays Unknown Vital Signs Date Vital Result Comment 09/15/2024 10:36am BP Systolic 102 mmHg BP Diastolic 60 mmHg Heart Rate 90 /min Height 66 inches 5'6 Weight 133.25 lb BMI (Body Mass Index) 21.5 kg/m2 Results Test Acquired Date Facility Test Result H/L Range Note N-Telopeptide , Urine 09/16/2024 [facility] N-Telopeptide 433 nmolBCE Not Estab. Creatinine, Urine 112.1 mg/dL No t Estab. N-Telo/Creat. Ratio 44 nMBCE/mMCr 0-89 Interpretive Guide: See Comment: 1 TSH Rfx on Abnormal to Free T4 09/15/2024 [facility] TSH RFX On Abnormal To Free T4 5.390 uIU/mL High 0.450-4.5 00 T4,Free (Direct) 1.37 ng/dL 0.82 -1.77 TSH Rfx on Abnormal to Free T4 10/24/2023 [facility] TSH Rfx on Abnormal to Free T4 2.490 uIU/mL 0.450-4.5 00 Vitamin D, 25-Hydroxy 10/24/2023 [facility] Vitamin D, 25-Hydroxy 38.3 ng/mL 30.0-100. 0 2 25Oh Vitamin D 12/28/2022 [facility] 25Oh Vitamin D 39.2 NG/ML (20-50) PTH, Intact 12/28/2022 [facility] PTH, Intact 31 pg/mL (15-65) N-Telopeptide Cross Links, Urine 12/28/2022 [facility] Cross Linked N-Telopeptides 237 3 Creat, Urine 78.4 4 N-Telopeptide/C re at Ratio 34 5 NTX Interpretaion Comment 6 PTH, Intact 12/27/2022 [facility] PTH, Intact <pending> 25Oh Vitamin D 12/27/2022 [facility] 25Oh Vitamin D <pending> 1 The N-telopeptide an d Creatinine are used to calculate the N-telo/Creat. Ratio which is referred to as NTx . Suggested guidelines for the clinical use of NTx are as follows: 1. Menopausal Women not on Hormone Replacement Therapy (HRT): Women with a baseline NTx value >38 are at significant risk for a decrease in bone mineral density (BMD) after 1 year compared to women on HRT. The probability of a decline in BMD increases with NTx value as follows: (1): Baseline NTx Probability of Decrease in BMD 18- 38 1.4 p=0.28 38- 51 2.5 p=0.03 51- 67 3.8 p=0.0006 67-188 17.3 p=0.0001 2. Menopausal Women Receiving Antiresorptive Therapy: The probability that treatment is effective after three months is increased when the measured NTx value is <or=38 nM BCE/mM BRIEF WRITER, or NTx has decreased >or=30% from baseline.[1] 3. Patients with Paget's Disease of Bone: The probability that treatment is effective after one month is increased when the measured NTx value is within the reference range, or NTx has decreased >or=30% from baseline.[2] 1. Josie CH, King NH, Luis GS, et al. Am J Med, 102:29-37,1997. (1):M757, 1996. 2. Bone H, Rylie J, et al. J Bone Min Res.11(1):M757,1996 2 Vitamin D deficiency has been defined by the [place] of Medicine and an Endocrine Society practice guideline as a level of serum 25-OH vitamin D less than 20 ng/mL (1,2). The Endocrine Society went on to further define vitamin D insufficiency as a level between 21 and 29 ng/mL (2). 1. IOM ([place] of Medicine). 2010. Dietary reference intakes for calcium and D. [place]: The National Academies Press. 2. Maame MF, Starr VELAZQUEZ, Je PASCAL, et al. Evaluation, treatment, and prevention of vitamin D deficiency: an Endocrine Society clinical practice guideline. JCEM. 2010; 96(7):1911-30. 3 Reference range: Not Estab. Unit: nmol BCE Test performed at [address] [address] 4 Reference range: Not Estab. Unit: mg/dL [facility] [address] [facility] [place] [address] 5 Reference range: 0 t o 89 Unit: nM BCE/mM Cr 6 (NOTE) The N-telopeptide and Creatinine are used to calculate the N-telo/Creat. Ratio which is referred to as NTx . Suggested guidelines for the clinical use of NTx are as follows: 1. Menopausal Women not on Hormone Replacement Therapy (HRT): Women with a baseline NTx value >38 are at significant risk for a decrease in bone mineral density (BMD) after 1 year compared to women on HRT. The probability of a decline in BMD increases with NTx value as follows: (1): Baseline NTx Probability of Decrease in BMD 18- 38 1.4 p EQ 0.28 38- 51 2.5 p EQ 0.03 51- 67 3.8 p EQ 0.0006 67-188 17.3 p EQ 0.0001 2. Menopausal Women Receiving Antiresorptive Therapy: The probability that treatment is effective after three months is increased when the measured NTx value is <or EQ 38 nM BCE/mM BRIEF WRITER, or NTx has decreased >or EQ 30% from baseline.[1] 3. Patients with Paget's Disease of Bone: The probability that treatment is effective after one month is increased when the measured NTx value is within the reference range, or NTx has decreased >or EQ 30% from baseline.[2] 1. Josie CH, King [place], Luis GS, et al. Am J Med, 102:29-37,1997. (1):M757, 1996. 2. Bone H, Rylie J, et al. J Bone Min Res.11(1):M757,1996 [facility], [address] [place] [address] Procedures Date Code Description Status 09/15/2024 95397 Collection Of Venous Blood B y Venipuncture Completed 06/30/2024 NSHOWOFF No Show Office Visit Complet ed 10/24/2023 40415 Collection Of Venous Blood B y Venipuncture Completed Medical Devices Description No Information Available Encounters Type Date Location Provider Dx Diagnosis Office Visit 09/15/2024 10:30a Main Office Arlette Hartman M.D. E03.9 Hypothyroidism, unspecified M81.0 Age-related osteopor osis w/o current pathological fracture R82.994 Hypercalciuria N20.0 Calculus of kidney Assessments Date Code Description Provider 09/15/2024 E03.9 Hypothyroidism, unspecified Arlette Hartman M.D. 09/15/2024 M81.0 Age-related oste oporosis without current pathological fracture Arlette Hartman M.D. 09/15/2024 R82.994 Hypercalciuria Arlette Chacon M.D. 09/15/2024 N20.0 Calculus of kidney Arlette Hartman M.D. Plan of Treatment Future Appointment(s):* 03/18/2025 10:30 am - Arlette Hartman M.D. at Main Office 12/24/2022 - Arlette Hartman M.D.* M81.0 Age-related osteoporosis without current pathological fracture * N20.0 Calculus of kidney * R82.994 Hypercalciuria * * New Xrays:* Dexa Bone Density Study Axial Skeleton, Ordered: 12/24/22 Functional Status Description No Information Available Mental Status Description No Information Available Referrals Description No Information Available
== END 2024-12-14 17:00 | disposition home or self-care (01) ==
LOC: HO.HUSH 16:26
PROVIDERS: PCP Internal Medicine; Visit Provider Urology
DX: N20.0 Calculus of kidney (principal)
CPT/HCPCS: 99214

== ENCOUNTER 2025-01-06 13:50 | Outpatient (AMB) | payer MEDICARE, SELFPAY ==
--- NOTE | 2025-01-06 13:51 | HO.NEPHOV ---
Vital Signs 01/06/25 13:55 Height 5 ft 6 in Weight 129 lb BMI 20.8 BP 92/66 Blood Pressure Location Lt brachial Position Sitting Pulse 88 Pulse Source Pulse Oximeter Pulse Oximetry (%) 94 Oxygen Delivery Method Room Air Intake Visit Reasons: INP: Calculus of Kidney-Conf Sales Service Assistant Required: No Accompanied by: Self / Same As Patient Allergies Seasonal Allergies Allergy (Unknown, Verified 01/06/25 13:58) Unknown Medication List - Last Reconciled 01/06/25 by Babak Ferrer MD estradiol 0.01%(0.1mg/gram) grams vaginal levothyroxine 88 mcg PO DAILY loratadine 10 mg PO DAILY PRN pyridoxine (vitamin B6) 50 mg PO DAILY tamsulosin (Flomax) 0.4 mg PO BEDTIME PRN HPI Comments Details: The patient is a 74-year-old female presenting with recurrent nephrolithiasis. She has been experiencing kidney stones for approximately 5 to 10 years, with ultrasounds conducted every 8 months revealing small stones on both sides. A urinary tract infection two years ago led to a CT scan revealing 18 stones, and a recent ultrasound six weeks ago confirmed stones on both sides again. Recently has stone removal followed by stent for a day in [facility] The patient reports a history of interstitial cystitis, complicating dietary choices due to conflicting dietary restrictions for kidney stones and bladder condition. She experiences bladder swelling and abdominal pain when consuming acidic foods and beverages, such as lemonade and cranberry juice. The condition began after a total hysterectomy at age 51, with symptoms re-emerging after a period of remission. The patient also has a history of Clostridium difficile infection following hospitalization and antibiotic treatment, which resulted in prolonged illness and required expensive medication for resolution. She reports ongoing gastrointestinal symptoms, although they have improved since completing antibiotic therapy two and a half weeks ago. [facility] Medical History Nutcracker phenomenon of renal vein UTI (urinary tract infection) H/O simple renal cyst Microscopic hematuria Bladder pain Hyperthyroidism Interstitial cystitis Hypercalciuria Bilateral nephrolithiasis Surgical History History of cystoscopy History of hernia repair History of hysterectomy Physical Exam Vital Signs: Last Vital Signs Pulse 88 01/06/25 13:55 BP 92/66 08/13/25 13:55 Pulse Ox 94 01/06/25 13:55 Oxygen Delivery Method Room Air 01/06/25 13:55 BMI result Body Mass Index 20.8 Results Reviewed Results Reviewed: 2022 Low urinary citrate Nephrology Results: Renal US 05/02/22 Assessment & Plan Assessment & Plan (1) Nephrolithiasis: Code(s): N20.0 - Calculus of kidney Category: Medical Plan Recurrent Nephrolithiasis In the past, she has low urinary citrate; But she is unable to increase oral citrate including lemonade due to interstitial cystitis. Renal function is normal Work up initiated Repeat 24 hr urine studies Encouraged to stay on a LOW salt diet Increase PO fluid intake to maintain UO of 2L per 24 hrs May need Potassium citrate Discussed dietary modifications. Orders: Orders Sodium, 24Hr Urine Group Today N20.0 - Calculus of kidney Creatinine, 24 Hr Group Today N20.0 - Calculus of kidney Calcium, 24 Hr Ur Today N20.0 - Calculus of kidney Uric Acid, 24Hr Urine Group Today N20.0 - Calculus of kidney Citric Acid 24hr Urine Today N20.0 - Calculus of kidney Oxalate, 24 Hr Today N20.0 - Calculus of kidney Coding Level of Care Code New Pt Level 4 (66458) Diagnoses Nephrolithiasis N20.0
[2025-01-06 13:55] VITALS: BP 92/66; PULSE 88; O2SAT 94; BMI 20.8
--- OUTSIDE RECORDS SUMMARY | 2025-01-06 14:14 | XMS_ITS | Continuity of Care Document ---
Author Organization [facility] [address] [place] [address] Phone [phone] Care Team Providers Care Ramp Supervisor Name Role Phone Arvind Mcgrath M.D. Care Team Information Customer Records Division Supervisor + [phone] Problems Active Problems Provider Date Gastroesophageal reflux disease Arlette Justice M.D. Onset: 12/24/2022 Dysphagia Arlette Hartman M.D. Ons et: 12/24/2022 Hypothyroidism Arlette Hartman M.D. Ons et: 12/24/2022 Allergic rhinitis Arlette Hartman M.D. O nset: 12/24/2022 Vitamin D deficiency Vern Livingston Onset: 12/24/2022 Osteoporosis Arlette Hartman M.D. Ons et: 12/24/2022 Recurrent kidney stone Yara Livingston Onset: 12/24/2022 Chronic interstitial cystitis Arlette garcia M.D. 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 12/24/2022 Estradiol0.1mg/GM Cream Apply twice weekly Pallavi Young Vitamin B650mg Tablets Take 1 Tablet By Mouth Every Day Unknown Fluticasone Fqxwazjpow51nch/Act Suspension arenn Arvind Mcgrath M.D. Vitamin U401wpf (1999 Ut) Capsules 1 by mouth every day Arlette Hartman M.D. Levothyroxine Nrmlle532isn Tablets Take 1 tablet daily except take [...] 30.0-100. 0 2 25Oh Vitamin D 12/28/2022 [facility] 25Oh Vitamin D 39.2 NG/ML (20-50) PTH, Intact 12/28/2022 [facility] PTH, Intact 31 pg/mL (15-65) N-Telopeptide Cross Links, Urine 12/28/2022 [facility] Cross Linked N-Telopeptides 237 3 Creat, Urine 78.4 4 N-Telopeptide/C re at Ratio 34 5 NTX Interpretaion Comment 6 PTH, Intact 12/27/2022 [facility] PTH, Intact <pending> 25Oh Vitamin D 12/27/2022 [facility] 25Oh Vitamin D <pending> 1 [...] measured NTx value is <or=38 nM BCE/mM ENVIRONMENTAL SCIENCE INSTRUCTOR, or NTx has decreased >or=30% from baseline.[1] 3. Patients with Paget's Disease of Bone: The probability that treatment is effective after one month is increased when the measured NTx value is within the reference range, or NTx has decreased >or=30% from baseline.[2] 1. Josie CH, King NH, Luis GS, et al. Am J Med, 102:29-37,1997. (1):M757, 1996. 2. Bone H, Ryile J, et al. J Bone Min Res.11(1):M757,1996 2 Vitamin D deficiency has been defined by the [place] of Medicine and an Endocrine Society practice guideline as a level of serum 25-OH vitamin D less than 20 ng/mL (1,2). The Endocrine Society went on to further define vitamin D insufficiency as a level between 21 and 29 ng/mL (2). 1. IOM ([place] of Medicine). 2010. Dietary reference intakes for calcium and D. [place]: The National Academies Press. 2. Maame MF, Starr VELAZQUEZ, Je PASCAL, et al. Evaluation, treatment, and prevention of vitamin D deficiency: an Endocrine Society clinical practice guideline. JCEM. 2010; 96(7):1911-30. 3 Reference range: Not Estab. Unit: nmol BCE Test performed at [address] [address] 4 Reference range: Not Estab. Unit: mg/dL Test performed by [facility], [address] [place] [address] 5 Reference range: 0 t o 89 [...] value is <or EQ 38 nM BCE/mM ENVIRONMENTAL SCIENCE INSTRUCTOR, or NTx has decreased >or EQ 30% [...] J Bone Min Res.11(1):M757,1996 Test performed at [facility], [address] [place] [id number] Procedures Date Code Description Status 09/15/2024 60825 Collection Of Venous Blood B y Venipuncture Completed 06/30/2024 NSHOWOFF No Show Office Visit Complet ed 10/24/2023 10123 Collection Of Venous Blood B y Venipuncture [...]
--- OUTSIDE RECORDS SUMMARY | 2025-01-06 14:14 | XMS_ITS | Patient Health Record ---
Author Organization [facility] Address [address] [place] [address] Care Team Providers Care Envelope Machine Adjuster Name Role Phone Arvind Mcgrath Primary Care [...] Insured Coverage Start Date Coverage End Date [facility] [address] [facility] [address] [place] [address] [id number] Linoa Self - patient is the insured Medical [...]
== END 2025-01-06 14:28 | disposition home or self-care (01) ==
LOC: HO.HKAE 13:51
PROVIDERS: PCP Internal Medicine; Referring Provider Urology; Visit Provider Internal Medicine Hypertension Specialist
DX: N20.0 Calculus of kidney (principal)
CPT/HCPCS: 99204

== ENCOUNTER → 2025-01-06 13:50 | Outpatient (BNVA) | payer MEDICARE, SELFPAY | PROVIDERS: PCP Internal Medicine; Referring Provider Urology; Visit Provider Internal Medicine Hypertension Specialist | DX: N20.0 Calculus of kidney (principal); N30.10 Interstitial cystitis (chronic) without hematuria | CPT/HCPCS: 99202 ==

== ENCOUNTER 2025-02-17 13:57 | Outpatient (AMB) | payer MEDICARE, SELFPAY ==
[2025-02-17 13:59] VITALS: BP 98/62; PULSE 77; O2SAT 94; BMI 20.8
--- NOTE | 2025-02-17 13:59 | HO.NEPHOV_ITS ---
Vital Signs 02/17/25 13:59 Height 5 ft 6 in Weight 129 lb BMI 20.8 BP 98/62 Blood Pressure Location Lt brachial Position Sitting Pulse 77 Pulse Source Pulse Oximeter Pulse Oximetry (%) 94 Oxygen Delivery Method Room Air Intake Visit Reasons: 4-6wk f/u w/labs-Conf Airbrush Painter Required: No Accompanied by: Self / Same As Patient Allergies Seasonal Allergies Allergy (Unknown, Verified 02/17/25 14:02) Unknown Medication List - Last Reconciled 02/17/25 by Babak Ferrer MD estradiol 0.01%(0.1mg/gram) grams vaginal levothyroxine 100 mcg PO DAILY loratadine 10 mg PO DAILY PRN pyridoxine (vitamin B6) 50 mg PO DAILY tamsulosin (Flomax) 0.4 mg PO BEDTIME PRN HPI Comments Details: The patient is a 74-year-old female presenting with recurrent nephrolithiasis. She has been experiencing kidney stones for approximately 5 to 10 years, with ultrasounds conducted every 8 months revealing small stones on both sides. A urinary tract infection two years ago led to a CT scan revealing 18 stones, and a recent ultrasound six weeks ago confirmed stones on both sides again. Recently has stone removal followed by stent for a day in [facility] The patient reports a history of interstitial cystitis, complicating dietary choices due to conflicting dietary restrictions for kidney stones and bladder co ndition. She experiences bladder swelling and abdominal pain when consuming acidic foods and beverages, such as lemonade and cranberry juice. The condition began after a total hysterectomy at age 51, with symptoms re- emerging after a period of remission. The patient also has a history of Clostridium difficile infection following hospitalization and antibiotic treatment, which resulted in prolonged illness and required expensive medication for resolution. She reports ongoing gastrointestinal symptoms, although they have improved since completing antibiotic therapy two and a half weeks ago. 02/17/25 74-year-old female presenting with kidney stones and osteopenia. [facility] Medical History Nutcracker phenomenon of renal vein UTI (urinary tract infection) H/O simple renal cyst Microscopic hematuria Bladder pain Hyperthyroidism Interstitial cystitis Hypercalciuria Bilateral nephrolithiasis Surgical History History of cystoscopy History of hernia repair History of hysterectomy Physical Exam Vital Signs: Last Vital Signs Pulse 77 02/17/25 13:59 BP 98/62 02/17/25 13:59 Pulse Ox 94 02/17/25 13:59 Oxygen Delivery Method Room Air 02/17/25 13:59 BMI result Body Mass Index 20.8 Comfortable Neck supple no JVD. Lungs entry equal no rales. Heart S1-S2 heard no gallop or rub. Abdomen soft nontender. Neuro alert awake oriented. No asterixis. Extremities no edema. Results Reviewed Results Reviewed: Urine collection. Urine calcium excretion was in the normal range Hypo citrate urea. Oxalate levels were ordered but not reported yet Nephrology Results: Renal US 05/02/22 Assessment & Plan Assessment & Plan (1) Nephrolithiasis: Code(s): N20.0 - Calculus of kidney Category: Medical Plan Recurrent Nephrolithiasis In the past, she has low urinary citrate; But she is unable to increase oral citrate including lemonade due to interstitial cystitis. Renal function is normal Twenty-four urine collection reveals normal urine calcium excretion and low citrate excretion. She will benefit from citrate supplementation. She is unable to consume lemonade I shall add potassium citrate 5 mEq twice a day with food History of osteopenia. Serum calcium is normal Urine calcium excretion is in the normal range and no hypercalciuria. We can cautiously add calcium supplementation 500 mg once a day with meals. Encouraged to stay on a LOW salt diet Increase PO fluid intake to maintain UO of 2L per 24 hrs Orders: Orders Sodium, 24Hr Urine Group 6 Months N20.0 - Calculus of kidney Citric Acid 24hr Urine 6 Months N20.0 - Calculus of kidney Basic Metabolic Panel 6 Months N20.0 - Calculus of kidney Oxalate, 24 Hr 6 Months N20.0 - Calculus of kidney Calcium, 24 Hr Ur 6 Months N20.0 - Calculus of kidney Creatinine, 24 Hr Group 6 Months N20.0 - Calculus of kidney Medications: New potassium citrate ER 5 mEq PO BID 180 tabs 1RF potassium citrate ER 5 mEq PO BID 180 tabs 1RF Coding Level of Care Code Est Pt Level 4 (81916) Diagnoses Nephrolithiasis N20.0
--- OUTSIDE RECORDS SUMMARY | 2025-02-17 16:28 | XMS_ITS | Continuity of Care Document ---
Author Organization [facility] [address] [place] [address] Phone [phone] Care Team Providers Care Picker And Sorter Load And Unload Name Role Phone Arvind Mcgrath M.D. 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 Vitamin [id number] (1999 Ut) Capsules 1 by mouth every day Arlette Hartman M.D. Levothyroxine [id number] Tablets Take 1 tablet daily except take [...] 30.0-100. 0 2 25Oh Vitamin D 12/28/2022 [facility] 25Oh Vitamin D 39.2 NG/ML (20-50) PTH, Intact 12/28/2022 [facility] PTH, Intact 31 pg/mL (15-65) N-Telopeptide Cross Links, Urine 12/28/2022 [facility] Cross Linked N-Telopeptides 237 3 Creat, Urine 78.4 4 N-Telopeptide/C re at Ratio 34 5 NTX Interpretaion Comment 6 PTH, Intact 12/27/2022 [facility] PTH, Intact <pending> 25Oh Vitamin D 12/27/2022 [facility] 25Oh Vitamin D <pending> 1 [...] measured NTx value is <or=38 nM BCE/mM PROFESSOR OF EXERCISE SCIENCE, or NTx has decreased >or=30% from baseline.[1] [...] D deficiency has been defined by the [place] of [employer] and an Endocrine Society practice guideline as a level of serum 25-OH vitamin D less than 20 ng/mL (1,2). The Endocrine Society went on to further define vitamin D insufficiency as a level between 21 and 29 ng/mL (2). 1. IOM ([place] of [employer]). 2010. Dietary reference intakes for calcium and D. [place]: The National Academies Press. 2. Maame MF, Starr VELAZQUEZ, Je PASCAL, et al. Evaluation, treatment, and prevention of vitamin D deficiency: an Endocrine Society clinical practice guideline. JCEM. 2010; 96(7):1911-30. 3 Reference range: Not Estab. Unit: nmol BCE Test performed at [address] [id number] 4 Reference range: Not Estab. Unit: mg/dL Test performed by [facility], [address] [facility] [facility] [place] [address] 5 Reference range: 0 t o 89 [...] value is <or EQ 38 nM BCE/mM PROFESSOR OF EXERCISE SCIENCE, or NTx has decreased >or EQ 30% [...] J Bone Min Res.11(1):M757,1996 Test performed at [facility], [address] [place] [id number] Procedures Date Code Description Status 09/15/2024 59939 Collection Of Venous Blood B y Venipuncture Completed 06/30/2024 NSHOWOFF No Show Office Visit Complet ed 10/24/2023 14787 Collection Of Venous Blood B y Venipuncture [...]
--- OUTSIDE RECORDS SUMMARY | 2025-02-17 16:28 | XMS_ITS | Patient Health Record ---
Author Organization [facility] Address [address] [place] [address] Care Team Providers Care Information Systems Coordinator Name Role Phone Arvind Mcgrath Primary Care [...] Insured Coverage Start Date Coverage End Date [facility] 1 [facility] [address] [place] [address] [id number] Linoa Self - patient is the insured [...]
== END 2025-02-17 14:25 | disposition home or self-care (01) ==
LOC: HO.HKAE 13:58
PROVIDERS: PCP Internal Medicine; Visit Provider Internal Medicine Hypertension Specialist
DX: N20.0 Calculus of kidney (principal)
CPT/HCPCS: 99214

== ENCOUNTER → 2025-02-17 13:57 | Outpatient (BNVA) | payer MEDICARE, SELFPAY | PROVIDERS: PCP Internal Medicine; Visit Provider Internal Medicine Hypertension Specialist | DX: N20.0 Calculus of kidney (principal); M85.80 Other specified disorders of bone density and structure, unspecified site | CPT/HCPCS: 99212 ==